=== PATIENT | female | born 1970 | race Caucasian/White ===

== ENCOUNTER 2020-04-28 07:58 | Outpatient (CLI) | payer BC, SELFPAY ==
--- NOTE | ~2020-04-28 | MM_ITS ---
EXAMINATION: MM screening romie BI w marley HISTORY: Screening mammogram TECHNIQUE: Craniocaudal and mediolateral oblique 3-D tomosynthesis images were obtained and synthetic 2-D images were generated. CAD analysis was submitted and interpreted. COMPARISON: No prior mammogram is available for comparison at this institution. BREAST PARENCHYMAL COMPOSITION: There are scattered areas of fibroglandular density. FINDINGS: There is no evidence of suspicious mass, calcification, or architectural distortion to sugg est malignancy in either breast. There has been no suspicious interval change. IMPRESSION: 1. No mammographic evidence of malignancy. 2. Recommend routine screening mammography in one year. BI-RADS Category 1: Negative Reviewed, dictated and finalized at location A. [facility] [employer]
== END 2020-04-28 07:59 | disposition home or self-care (01) ==
LOC: ANHIMG 08:04
PROVIDERS: Visit Provider Obstetrics & Gynecology
DX: Z12.31 Encounter for screening mammogram for malignant neoplasm of breast (principal)
CPT/HCPCS: 77063; 77067

== ENCOUNTER 2021-01-19 08:26 | Outpatient (RCR) | payer BC, SELFPAY | END 2021-04-05 11:58 | disposition home or self-care (01) | LOC: ANHDMC 08:26 | PROVIDERS: PCP Nurse Practitioner Adult Health; Visit Provider Nurse Practitioner Adult Health | DX: Z98.84 Bariatric surgery status (principal) | CPT/HCPCS: 99199 ==

== ENCOUNTER 2021-05-26 13:19 | Outpatient (CLI) | payer BC, SELFPAY ==
--- NOTE | 2021-05-26 | ECHO_ITS ---
Patient Info Name: Johanna Castellanos Age: 50 years : 1970 Gender: Female Ht: 65 in Wt: 202 lbs BSA: 2.09 m2 HR: 78 bpm BP: 114 / 67 mmHg Heart Rhythm: Sinus Rhythm Technical Quality: Good Exam Date: 05/26/2021 2:15 PM Exam Location: [facility] Patient Status: Outpatient Admit Date: 05/26/2021 Staff Ordering Physician: GUSTAVO JACKSON MD [employer] Salesperson: April Tanner RDCS Attending Provider: GUSTAVO JACKSON MD Exam Type: CA echo doppler color flow Study Info Indications - [facility] Complete two-dimensional, color flow and Doppler transthoracic echocardiogram is performed. Summary 1. Complete two-dimensional, color flow and Doppler transthoracic echocardiogram is performed. 2. Normal left ventricular size and thickness with good contractility of all segments. No segmental wall motion abnormalities. Ejection fraction 65%. Normal diastolic function. 3. No significant valve disease. 4. No pulmonary hypertension, estimated pulmonary arterial systolic pressure is 34 mmHg. 5. Normal sinus rhythm. Left Ventricle Left ventricular chamber dimension is normal. Left ventricular systolic function is normal, estimated at 60-65%. There is no increased left ventricular wall thickness. Left ventricular septal wall motion is normal. The left ventricular diastolic function is normal. Right Ventricle Right ventricular chamber dimension is normal. Right ventricular systolic function is normal. Left Atria Left atrial chamber dimension is normal. Right Atria Right atrial chamber dimension is normal. Aortic Valve The aortic valve is trileaflet. There is no aortic valve sclerosis. There is no aortic valve stenosis. There is no aortic valve regurgitation. Pulmonic Valve The pulmonic valve is normal. There is no pulmonic valve stenosis. There is no pulmonic regurgitation. Mitral Valve The mitral valve has normal leaflets. There is no mitral valve stenosis. There is no mitral valve regurgitation. Tricuspid Valve The tricuspid valve leaflets are normal. There is no significant tricuspid valve stenosis. There is trace tricuspid valve regurgitation. No pulmonary hypertension, estimated pulmonary arterial systolic pressure is 34 mmHg. Pericardium/Pleural The pericardium appears normal. There is no pericardial effusion. Inferior Vena Cava Normal inferior vena cava with >50% collapse upon inspiration consistent with Empty right atrial pressure, 10 mmHg. Aorta The aortic root size at the sinus of Valsalva is normal. The prox ascending aorta size is normal. Left Ventricular Outflow Tract Name Value Normal LVOT 2D LVOT Diameter 2.0 cm LVOT Doppler LVOT Peak Gradient 4 mmHg LVOT Mean Gradient 2 mmHg LVOT VTI 23 cm LVOT VTI/AV VTI Ratio 1.0 LVOT Stroke Volume 75 ml LVOT CO 13.9 l/min LVOT CI 6.6 l/min/m2 Pulmonic Valve
== END 2021-05-26 13:20 | disposition home or self-care (01) ==
LOC: ANHCARD 13:23
DX: R00.2 Palpitations (principal); R06.00 Dyspnea, unspecified; R60.9 Edema, unspecified
CPT/HCPCS: 93306

== ENCOUNTER → 2021-06-21 10:01 | Outpatient (CLI) | payer BC, SELFPAY ==
--- NOTE | ~2021-06-21 | XR_ITS ---
EXAMINATION: XR lumbar spine min 4V DATE: 06/21/2021 10:59 INDICATION: Unspecified osteoarthritis TECHNIQUE: Anteroposterior, lateral, and bilateral oblique views of the lumbar spine, and cone-down l ateral view of the lumbosacral junction were obtained. COMPARISON: None. FINDINGS: There is no fracture, dislocation, or subluxation. The vertebral body heights and alignment are normal. There is mild loss of intervertebral disc space height at L5-S1. The prevertebral soft t issues are normal. There is mild facet osteoarthritis of the lower lumbar spine. Surgical clips in th e right upper quadrant are likely from prior cholecystectomy. IMPRESSION: 1. Mild lumbar spondylosis without acute findings. Reviewed, dictated and finalized at location A.
--- NOTE | ~2021-06-21 | XR_ITS ---
EXAMINATION: XR sacroiliac joints min 3V DATE: 06/21/2021 10:59 INDICATION: Other specified abnormal immunologic findings TECHNIQUE: AP and left and right oblique views of the bilateral sacroiliac joints are obtained. COMPARISON: 01/04/2010 FINDINGS: Alignment is normal. No fracture. Bilateral sacroiliac joint spaces appear symmetric and re latively preserved. Tiny marginal osteophytes inferiorly. No erosions to suggest an inflammatory sacr oiliitis. Bilateral hip joint spaces are normal. L5 is partially sacralized on the left. IMPRESSION: 1. Minimal bilateral sacroiliac osteoarthritis. Reviewed, dictated and finalized at location A.
--- NOTE | ~2021-06-21 | XR_ITS ---
EXAMINATION: XR foot RT standing 2V DATE: 06/21/2021 10:59 INDICATION: Other specified abnormal immunological findings. Right foot pain. TECHNIQUE: 2 views of right foot with weightbearing were obtained. COMPARISON: None. FINDINGS: Bone alignment is normal. No fracture. There is mild osteoarthritis of calcaneocuboid joint and some of the interphalangeal joints. There is an enthesophyte at posterior aspect of calcaneal tu berosity. IMPRESSION: 1. Mild polyarticular osteoarthritis. Reviewed, dictated and finalized at location B.
--- NOTE | ~2021-06-21 | XR_ITS ---
EXAMINATION: XR knee RT min 4V DATE: 06/21/2021 10:59 INDICATION: Other specified abnormal immunological findings. Right knee pain. TECHNIQUE: 4 views of right knee including standing views were obtained. COMPARISON: None. FINDINGS: Bone alignment is normal. No fracture. There is mild osteoarthritis of medial and patellofe moral compartments characterized by tiny osteophytes. No joint space narrowing. No knee joint effusio n. IMPRESSION: 1. Mild right knee osteoarthritis. Reviewed, dictated and finalized at location B.
--- NOTE | ~2021-06-21 | XR_ITS ---
EXAMINATION: XR knee LT min 4V DATE: 06/21/2021 10:59 INDICATION: Other specified abnormal immunological findings. Left knee joint pain. TECHNIQUE: 4 views of left knee including standing views were obtained. COMPARISON: None. FINDINGS: Bone alignment is normal. No fracture. Joint spaces are well maintained. There is no knee j oint effusion. IMPRESSION: 1. Normal left knee. Reviewed, dictated and finalized at location B. IMPRESSION: 1. Normal left knee.
--- NOTE | ~2021-06-21 | XR_ITS ---
EXAMINATION: HAND-BETSY ARTHRITIS 3+VIEWS DATE: 06/21/2021 10:59 INDICATION: Unspecified osteoarthritis. Other specified abnormal immunological finding with positive and he. Joint pain and stiffness. TECHNIQUE: Posteroanterior, lateral, and oblique views of the left and of the right hands as well as a ballcatchers view of both hands were obtained. COMPARISON: None. FINDINGS: Alignment is normal. No fracture. Typical distribution of relatively symmetric mild polyarticular ost eoarthritis at the radial aspect of the carpus and multiple bilateral metacarpophalangeal and interph alangeal joints with distal interphalangeal joint predominance. No erosions in either hand to suggest an inflammatory arthritis. Soft tissues are unremarkable. IMPRESSION: 1. Mild polyarticular osteoarthritis at the bilateral hands. No erosions to suggest inflammatory arth ritis. Reviewed, dictated and finalized at location A. IMPRESSION: 1. Mild polyarticular osteoarthritis at the bilateral hands. No erosions to sug gest inflammatory arthritis.
--- NOTE | ~2021-06-21 | XR_ITS ---
EXAMINATION: XR foot LT standing 2V DATE: 06/21/2021 10:59 INDICATION: Other specified abnormal immunological finding. Joint pain, swelling and stiffness. TECHNIQUE: Dorsoplantar and lateral views of the left foot were obtained. COMPARISON: None. FINDINGS: Alignment is normal. No fracture. Minimal to mild osteoarthritis at the first metatarsophalangeal and several tarsal metatarsal and interphalangeal joints. No erosions to suggest inflammatory arthritis. Small amount of enthesopathic consultation at the distalmost Achilles tendon. Soft tissues are other harkins unremarkable. IMPRESSION: 1. Minimal to mild polyarticular osteoarthritis in the mid and forefoot. No erosions to suggest an in flammatory arthritis. 2. Small amount of enthesopathic ossification at the the distal Achilles tendon. Reviewed, dictated and finalized at location A. IMPRESSION: 1. Minimal to mild polyarticular osteoarthritis in the mid and forefoot. No ero sions to suggest an inflammatory arthritis. 2. Small amount of enthesopathic ossification at the the distal Achilles tendon .
== END ==
PROVIDERS: PCP Nurse Practitioner Adult Health; Visit Provider Internal Medicine
DX: M19.90 Unspecified osteoarthritis, unspecified site (principal); R06.02 Shortness of breath; R76.8 Other specified abnormal immunological findings in serum; M47.896 Other spondylosis, lumbar region; M19.072 Primary osteoarthritis, left ankle and foot; M19.041 Primary osteoarthritis, right hand; M19.042 Primary osteoarthritis, left hand; M19.071 Primary osteoarthritis, right ankle and foot; M17.11 Unilateral primary osteoarthritis, right knee
CPT/HCPCS: 72110; 72202; 73130; 73564; 73620

== ENCOUNTER → 2021-06-25 14:03 | Outpatient (CLI) | payer BC, SELFPAY ==
--- NOTE | ~2021-06-25 | US_ITS ---
EXAMINATION: US thyroid DATE: 06/25/2021 14:37 INDICATION: Hypothyroidism, unspecified. TECHNIQUE: Multiple ultrasound images of the thyroid were obtained. COMPARISON: None. FINDINGS: The right thyroid lobe measures 3.8 x 1.2 x 1.0 cm. The left thyroid lobe measures 3.7 x 1.1 x 1.1 c m. The thyroid demonstrates heterogeneous echogenicity. Vascularity is normal. No discrete nodule. IMPRESSION: 1. Heterogeneous thyroid, likely chronic lymphocytic (Anne) thyroiditis. Reviewed, dictated and finalized at location A.
== END ==
PROVIDERS: PCP Nurse Practitioner Adult Health; Visit Provider Internal Medicine Endocrinology, Diabetes & Metabolism
DX: E03.9 Hypothyroidism, unspecified (principal)
CPT/HCPCS: 76536

== ENCOUNTER 2021-06-28 16:04 | Outpatient (CLI) | payer BC, SELFPAY ==
--- NOTE | ~2021-06-28 | CT_ITS ---
EXAMINATION: CT soft tissue neck w con DATE: 06/28/2021 16:35 INDICATION: Neck pain, cervical lymphadenopathy TECHNIQUE: Computed tomography (CT) of the neck was performed with 75 cc of Omnipaque 300 intravenous contrast. The dose-length product (DLP) was 621.06 mGy-cm. Automated exposure control and iterative reconstruction technique were employed. COMPARISON: None FINDINGS: The thyroid gland is unremarkable. The submandibular and parotid glands are symmetric. Ther e is no lymphadenopathy. There are no masses identified. The vasculature is patent. The airway is unr emarkable. There are no osseous abnormalities. The orbits are unremarkable. The superior mediastinum is unremarkable. Visualized sinuses and mastoid air cells are well aerated. IMPRESSION: 1. No CT correlate for the patient's symptoms. Reviewed, dictated and finalized at location A.
== END 2021-06-28 16:05 | disposition home or self-care (01) ==
PROVIDERS: PCP Nurse Practitioner Adult Health; Visit Provider Nurse Practitioner Adult Health
DX: R59.0 Localized enlarged lymph nodes (principal)
CPT/HCPCS: 70491; Q9967

== ENCOUNTER 2021-07-29 13:06 | Emergency (ER) | payer BC, SELFPAY ==
[2021-07-29 13:18] VITALS: BP 113/82; PULSE 72; RESP 18; TEMP 36.9; O2SAT 98
--- NOTE | 2021-07-29 13:37 | ED.URI ---
HPI - URI/Sore Throat General Chief Complaint: Upper Respiratory Infection Stated Complaint: Cough,Bilateral Ear Time Seen by Provider: 07/29/21 13:37 Source: patient Mode of arrival: ambulatory Limitations: no limitations History of Present Illness HPI Narrative: 51-year-old female presents with complaint of cough, sore throat and headache starting 2 days ago. Reports today she has bilateral ear pain. Reports throat is really sore . Denies chest pain shortness of breath. No nausea vomiting diarrhea. No COVID contacts. Reports her has had similar symptoms for the past 4 to 5 days. Has taken a home COVID test and his test was negative. All systems reviewed and negative except as noted above. Related Data Home Medications Medication Instructions Recorded Confirmed levothyroxine 125 mcg tablet 125 mcg PO DAILY 03/09/21 07/29/21 (Synthroid) cholecalciferol (vitamin D3) 250 250 mcg PO WEEKLY 05/18/21 07/29/21 mcg (10,000 unit) capsule Allergies Allergy/AdvReac Type Severity Reaction Status Date / Time doxycycline Allergy Unknown Unknown Verified 07/29/21 13:22 morphine Allergy Unknown body Verified 07/29/21 13:22 doesnt absorb Review of Systems Review of Systems: CONSTITUTIONAL: Denies fever, chills, or sweats. EYES: Denies visual changes, redness, or discharge. ENT: Reports rhinorrhea, congestion, sore throat, and otalgia. CARDIOVASCULAR: Denies chest pain, palpitations, or edema. RESPIRATORY: Reports cough. Denies dyspnea. GASTROINTESTINAL: Denies abdominal pain, nausea, vomiting, or diarrhea. GENITOURINARY: Denies dysuria or hematuria. SKIN: Denies rash or itching. MUSCULOSKELETAL: Denies back pain, joint pain, or myalgia. NEUROLOGIC: Denies headache, numbness, or weakness. PSYCHIATRIC: Denies anxiety or depression. All other systems reviewed are negative, except as documented in HPI. [facility] Past Medical History Medical History (Updated 07/30/21 @ 00:00 by Caleb Matthew) VICKIE positive Arthritis Head ache Inflammatory arthritis Palpitations SOB (shortness of breath) Thyroid disorder Surgical History Surgical History H/O gastric sleeve H/O hemorrhoidectomy H/O: hysterectomy History of appendectomy History of cholecystectomy Status post removal of thyroid nodule Family History Family History Father Family history of diabetes mellitus in first degree relative Cancer Diabetes mellitus Hypertension Heart disease Sibling Family history of sleep apnea Grandparent Family history of heart disease in male family member before age 55 Mother Depression Grandparent Alcoholism Cancer Grandparent Cancer Heart disease Thyroid disorder Social History Social History Smoking status: Never smoker Alcohol intake: never Substance use: never Comments At time of signature, agree with nursing past medical, surgical, social and family history. There is no relevant family history pertinent to the presenting complaint. Exam Narrative: GENERAL: This is a well-nourished, well-developed patient, in no apparent distress. HEAD: normocephalic, atraumatic. EYES: PERRL. Sclera clear/white. Vision is grossly intact. EARS: External ears normal, auditory canals clear and without drainage, TMs normal without perforation. Hearing grossly intact. NOSE: External nose normal with clear nasal drainage. No sinus tenderness. THROAT: Mucous membranes moist, mild erythema to posterior pharynx. No swelling or exudate. Tonsils normal. NECK: Neck supple, non-tender without lymphadenopathy, masses or thyromegaly. CARDIOVASCULAR: Regular rate and rhythm without murmurs, gallops, or rubs. RESPIRATORY: Clear to auscultation. Breath sounds equal bilaterally. No wheezes, rales, or rhonchi. SKIN: warm, Dry, intact with no s
== END 2021-07-29 14:11 | disposition home or self-care (01) ==
PROVIDERS: Emergency Provider Nurse Practitioner Family; PCP Nurse Practitioner Adult Health
DX: J06.9 Acute upper respiratory infection, unspecified (principal); Z20.822 Contact with and (suspected) exposure to COVID-19; M19.90 Unspecified osteoarthritis, unspecified site; M06.9 Rheumatoid arthritis, unspecified; Z98.84 Bariatric surgery status; E07.9 Disorder of thyroid, unspecified
CPT/HCPCS: 87081; 87426; 87880; 99213; C9803; G0463

== ENCOUNTER → 2021-08-16 15:03 | Outpatient (CLI) | payer BC, SELFPAY ==
--- NOTE | ~2021-08-16 | MR_ITS ---
EXAMINATION: MR lumbar spine wo/w con DATE: 08/16/2021 15:56 INDICATION: M06.9 - Rheumatoid arthritis, unspecified . Chronic low back pain, swelling, bilateral le g pain. Worsening over the last year. No trauma. TECHNIQUE: Magnetic resonance imaging (MRI) of the lumbar spine was performed without intravenous con trast. Sequences included sagittal T2-weighted FSE, sagittal T2-weighted FS FSE, sagittal T1-weighted FSE, and axial T2-weighted FSE. COMPARISON: X-ray lumbar spine 06/21/2021. FINDINGS: The last fully formed and hydrated disc is designated L5-S1. The marrow signal is benign an d homogenous. Partial sacralization on the left at L5, with pseudoarthrosis formation. Mild enhanceme nt within the bilateral sacroiliac joints. Otherwise no abnormal enhancement in the lumbar spine. Con us terminates at L1-2. The discs are well hydrated. Disc space narrowing at L5-S1. The following disc levels are specifically discussed: T11-T12: The disc does not extend beyond the endplate margin. There is no facet joint osteoarthritis. There is no neural foraminal stenosis. There is no central canal stenosis. T12-L1: The disc does not extend beyond the endplate margin. There is mild facet joint osteoarthritis . There is no neural foraminal stenosis. There is no central canal stenosis. L1-L2: The disc does not extend beyond the endplate margin. There is mild facet joint osteoarthritis. There is no neural foraminal stenosis. There is no central canal stenosis. L2-L3: The disc does not extend beyond the endplate margin. There is mild facet joint osteoarthritis. There is no neural foraminal stenosis. There is no central canal stenosis. L3-L4: Mild diffuse bulge. There is moderate facet joint osteoarthritis. There is no neural foraminal stenosis. There is no central canal stenosis. L4-L5: Mild diffuse bulge. There is moderate facet joint osteoarthritis. There is no neural foraminal stenosis. There is no central canal stenosis. L5-S1: The disc does not extend beyond the endplate margin. There is moderate facet joint osteoarthri tis. There is no neural foraminal stenosis. There is no central canal stenosis. IMPRESSION: 1. Mild degenerative disc disease at L3-4 through L5-S1. 2. Moderate facet arthropathy at L3-4 and L4-5. 3. Partial sacralization of L5 on the left, with pseudoarthrosis. 4. Mild bilateral sacroiliac joint enhancement may reflect mild sacroiliitis. Reviewed, dictated and finalized at location K.
[2021-08-16 15:29] LABS: Estimated Glomerular Filt Rate > 60
== END ==
PROVIDERS: PCP Nurse Practitioner Adult Health; Visit Provider Internal Medicine
DX: M06.9 Rheumatoid arthritis, unspecified (principal); M43.06 Spondylolysis, lumbar region; M51.37 Other intervertebral disc degeneration, lumbosacral region; M51.36 Other intervertebral disc degeneration, lumbar region
CPT/HCPCS: 72158; A9577

== ENCOUNTER → 2022-05-03 09:25 | Outpatient (CLI) | payer BC, SELFPAY ==
--- NOTE | ~2022-05-03 | XR_ITS ---
Cervical Spine: AP, lateral, open-mouth views Clinical History: Pain Findings: There is minimal reversal normal cervical lordosis. The vertebral bodies and posterior mango ments appear intact. The intervertebral disc spaces are well maintained. Pre-vertebral soft tissues are unremarkable. Impression: Minimal reversal of the normal cervical lordosis, otherwise unremarkable exam. Reviewed, dictated and finalized at [facility]. Impression: Minimal reversal of the normal cervical lordosis, otherwise unremarkable exam.
--- NOTE | ~2022-05-03 | US_ITS ---
EXAMINATION: US soft tissue head and neck DATE: 05/03/2022 09:46 INDICATION: Neck focal swelling. TECHNIQUE: Multiple grayscale and Doppler ultrasound images of the neck were obtained. COMPARISON: CT neck 06/28/2021 FINDINGS: There is no abnormal mass or lymphadenopathy in the patient's area of concern. IMPRESSION: 1. No abnormal mass or lymphadenopathy in the patient's area of concern. Reviewed, dictated and finalized at location A.
== END ==
PROVIDERS: PCP Physician Assistant; Visit Provider Physician Assistant
DX: R22.1 Localized swelling, mass and lump, neck (principal); M54.12 Radiculopathy, cervical region
CPT/HCPCS: 72040; 76536

== ENCOUNTER 2022-06-23 07:20 | Outpatient (CLI) | payer BC, SELFPAY ==
--- NOTE | ~2022-06-23 | MM_ITS ---
EXAMINATION: MM screening romie BI w marley HISTORY: Screening mammogram TECHNIQUE: Craniocaudal and mediolateral oblique 3-D tomosynthesis images were obtained and synthetic 2-D images were generated. CAD analysis was submitted and interpreted. COMPARISON: 04/28/2020 BREAST PARENCHYMAL COMPOSITION: There are scattered areas of fibroglandular density. FINDINGS: No suspicious mass, calcification, or architectural distortion are identified in either vladimir ast to suggest malignancy. There has been no suspicious interval change. IMPRESSION: 1. No mammographic evidence of malignancy. 2. Recommend routine screening mammography in one year. BI-RADS Category 1: Negative Reviewed, dictated and finalized at location A.
== END 2022-06-23 07:21 | disposition home or self-care (01) ==
LOC: ANHIMG 07:22
PROVIDERS: PCP Physician Assistant; Visit Provider Physician Assistant
DX: Z12.31 Encounter for screening mammogram for malignant neoplasm of breast (principal)
CPT/HCPCS: 77063; 77067

== ENCOUNTER 2022-07-28 13:50 | Emergency (ER) | payer BC, SELFPAY ==
--- NOTE | 2022-07-28 13:52 | ED.URI ---
HPI - URI/Sore Throat General Chief Complaint: Upper Respiratory Infection Stated Complaint: upper resp symptoms Time Seen by Provider: 07/28/22 14:00 Source: patient, RN notes reviewed and old records reviewed Mode of arrival: ambulatory Limitations: no limitations History of Present Illness HPI Narrative: 52-year-old female presents to the [facility] with complaints of 12 days of cough, congestion. States she thought she just had cold symptoms, some of the symptoms improve, so got worse on Monday, 3 days ago Patient reports exposures to COVID this Past few days, was notified this morning of her positive exposure, did to at home test 1 last week, 1 on Monday which she reports is negative. patient denies any fevers. Denies any chest pain or abdominal pain. patient already on prednisone, does not want to change her dose at this time. Patient is due for a infusion for her RA in 1 week, States she really does not want antibiotics at this time. Onset (ago): day(s) (12) Treatments prior to arrival: none Related Data Home Medications Medication Instructions Recorded Confirmed escitalopram oxalate 10 mg tablet mg 07/28/22 folic acid 1 mg tablet 07/28/22 methotrexate sodium 2.5 mg tablet mg 07/28/22 Allergies Allergy/AdvReac Type Severity Reaction Status Date / Time doxycycline Allergy Unknown Unknown Verified 07/28/22 13:56 morphine Allergy Unknown body Verified 07/28/22 13:56 doesnt absorb Review of Systems Review of Systems: All systems reviewed & are unremarkable except as noted in HPI and below Constitutional: Constitutional: Reports no additional constitutional complaints Eyes: Eyes: Reports no additional eye complaints ENT: Reports as per HPI Cardiovascular: Cardiovascular: Reports no additional cardiovascular complaints, Denies chest pain and Denies dyspnea Respiratory: Respiratory: Reports as per HPI, Denies chest congestion, Reports cough and Denies dyspnea Gastrointestinal: Gastrointestinal: Reports no additional gastrointestinal complaints, Denies abdominal pain, Denies nausea and Denies vomiting Musculoskeletal: Musculoskeletal: Reports no additional musculoskeletal complaints Integumentary/Breasts: Skin/Breast: Reports system reviewed and no additional complaints, except as docu Neurologic: Reports system reviewed and no additional complaints, except as documented Psychiatric: Psychiatric: Reports no additional psychiatric complaints Allergic/Immunologic: Allergic/Immunologic: Reports no additional allergic/immunologic complaints PMFSH Past Medical History Medical History Adult hypothyroidism VICKIE positive Ankylosing spondylitis Arthritis Head ache Inflammatory arthritis Palpitations SOB (shortness of breath) Thyroid disorder Surgical History Surgical History H/O gastric sleeve H/O hemorrhoidectomy H/O: hysterectomy History of appendectomy History of cholecystectomy Status post removal of thyroid nodule Family History Family History Father Family history of diabetes mellitus in first degree relative Cancer Diabetes mellitus Hypertension Heart disease Sibling Family history of sleep apnea Grandparent Family history of heart disease in male family member before age 55 Mother Depression Grandparent Alcoholism Cancer Grandparent Cancer Heart disease Thyroid disorder Social History Social History Smoking status: Never smoker Alcohol intake: never Substance use: never Comments At the time of my signature, I reviewed and agree with the nursing past medical, surgical, social, and family history. There is no relevant family history pertinent to the patient complaint. Exam Const: General: cooperative, healthy appearing
[2022-07-28 13:54] VITALS: BP 120/78; PULSE 85; RESP 16; TEMP 36.2; O2SAT 96
== END 2022-07-28 14:23 | disposition home or self-care (01) ==
PROVIDERS: Emergency Provider Nurse Practitioner; PCP Physician Assistant
DX: R09.82 Postnasal drip (principal); J06.9 Acute upper respiratory infection, unspecified; E03.9 Hypothyroidism, unspecified; M45.9 Ankylosing spondylitis of unspecified sites in spine; M19.90 Unspecified osteoarthritis, unspecified site
CPT/HCPCS: 99213; G0463

== ENCOUNTER → 2022-09-16 15:16 | Outpatient (CLI) | payer BC, SELFPAY ==
--- NOTE | ~2022-09-16 | XR_ITS ---
XR lumbar spine 2-3V DATE: 09/16/2022 15:52 INDICATION: Low back pain for many years. No injury. TECHNIQUE: AP, lateral, coned lateral lumbosacral views COMPARISON: None FINDINGS: There is a transitional lumbosacral vertebra with sacralization pseudoarthrosis on the left , lumbarization on the right. Transitional lumbosacral vertebra may be a source of chronic low back p ain. No fracture or bone destruction. The lumbar pedicles are intact. Lumbar and upper sacral interspaces appear relatively well preserved. The sacroiliac joints are intact. 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 IMPRESSION: Transitional lumbosacral vertebra with sacralization and pseudoarth rosis on the left
== END ==
PROVIDERS: PCP Internal Medicine; Visit Provider Internal Medicine
DX: M77.9 Enthesopathy, unspecified (principal); M45.9 Ankylosing spondylitis of unspecified sites in spine; R76.8 Other specified abnormal immunological findings in serum
CPT/HCPCS: 72100

== ENCOUNTER → 2022-10-10 13:41 | Outpatient (CLI) | payer BC, SELFPAY ==
--- NOTE | ~2022-10-10 | XR_ITS ---
EXAMINATION: XR chest 2V DATE: 10/10/2022 14:10 INDICATION: Shortness of breath. TECHNIQUE: Frontal and lateral views of the chest were obtained. COMPARISON: Chest film view 12/11/2019 FINDINGS: There is no pneumonia, pleural effusion, or pneumothorax. The heart size is normal. IMPRESSION: 1. No acute cardiopulmonary disease. Reviewed, dictated and finalized at location A.
== END ==
PROVIDERS: PCP Physician Assistant; Visit Provider Internal Medicine
DX: R06.02 Shortness of breath (principal); R53.83 Other fatigue; R63.0 Anorexia; R29.898 Other symptoms and signs involving the musculoskeletal system
CPT/HCPCS: 71046

== ENCOUNTER → 2023-01-30 10:45 | Outpatient (CLI) | payer BC, SELFPAY ==
--- NOTE | ~2023-01-30 | MR_ITS ---
MRI of the right knee Clinical history: Pain Technique: Coronal proton density and proton density-weighted images, sagittal proton-density and T2 fat-sat images, and axial proton-density fat-saturated images were acquired. Findings: Anterior and posterior cruciate ligaments are intact. Medial collateral ligament and the la teral collateral ligament complex are intact. Popliteus tendon is intact. Medial and lateral menisci are intact, without evidence of tear. There is marrow edema at the medial tibial plateau region. There is probable mild diffuse articular c artilage thinning. Extensor mechanism is intact. No joint effusion or Chairez's cyst. Impression: Marrow edema at the medial tibial plateau region, suggestive of bone contusion or reactive marrow virgen ma due to overlying chondromalacia. No ligamentous injury or meniscal tear. Reviewed, dictated and finalized at [facility]. 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 No ligamentous injury or meniscal tear.
== END ==
PROVIDERS: PCP Orthopaedic Surgery; Visit Provider Physician Assistant Surgical
DX: M25.561 Pain in right knee (principal)
CPT/HCPCS: 73721

== ENCOUNTER 2024-05-01 14:00 | Outpatient (CLI) | payer BC, SELFPAY ==
--- NOTE | ~2024-05-01 | MM_ITS ---
EXAMINATION: MM screening romie BI w marley HISTORY: Screening mammogram TECHNIQUE: Craniocaudal and mediolateral oblique 3-D tomosynthesis images were obtained and synthetic 2-D images were generated. CAD analysis was submitted and interpreted. COMPARISON: 06/23/2022, 04/28/2020 BREAST PARENCHYMAL COMPOSITION:Not Dense. There are scattered areas of fibroglandular density. FINDINGS: No suspicious mass, calcification, or architectural distortion are identified in either vladimir ast to suggest malignancy. There has been no suspicious interval change. IMPRESSION: No mammographic evidence of malignancy. Recommend routine screening mammography in one year. BI-RADS Category 1: Negative Reviewed, dictated and finalized at location .
--- OUTSIDE RECORDS SUMMARY | 2024-05-01 15:50 | XMS_ITS | Patient Health Summary ---
Author Organization [facility] Address [address] [address] Care Team Providers Care Truck Loader Overhead Crane Name Role Phone Luz Marinamert Sylvia BETY-DRAPERY MAKER Primary Care Provider + Note from [facility],non-owned Affiliates and Associated Physician Practices is amultiple site organization consisting of ambulatory clinics and hospital sitesin [place], [place], [place] and [place]. This disclosure is being madepursuant to the Care Everywhere program and may not contain all information available regarding this patient. Last updated 17.[facility] Allergies * Morphine(Anaphylaxis) -High Criticality Medications * Be aware that medications may not be up to date on this document. Alwaysverify current medications with the patient. * est estrogens-methyltest (ESTRATEST) 1.25-2.5 MG tablet Take 1 Tab by mouth * levothyroxine (SYNTHROID) 137 MCG tablet Take 137 mcg by mouth * docusate sodium (COLACE) 100 MG capsule(Started 08/30/2016) 1 tab daily as needed Social History Tobacco Use Types Packs/Day Years Used Date Smoking Tobacco: Never Smokeless Tobacco: Never Alcohol Use Standard Drinks/Week Comments No 0 (1 standard drink = 0.6 oz pur e alcohol) Sex and Gender Information Value Date Recorded Sex Assigned at Not on file Gender Identity Not on file Sexual Orientation Not on file Last Filed Vital Signs Vital Sign Reading Time Taken Comments Blood Pressure 120/68 02/16/2017 12:53 PM GROUNDS SUPERVISOR Pulse 121 02/16/2017 12:53 PM GROUNDS SUPERVISOR Temperature 37.1 C (98.7 F) 02/16/2017 12:53 PM GROUNDS SUPERVISOR Respiratory Rate 16 08/30/2016 3:05 PM CDT Oxygen Saturation 98% 02/16/2017 12:53 PM GROUNDS SUPERVISOR Inhaled Oxygen Concentration - - Weight 73.8 kg (162 lb 9.6 oz) 02/16/2017 12:53 PM GROUNDS SUPERVISOR Height 165.1 cm (5' 5 ) 02/16/2017 12:53 PM GROUNDS SUPERVISOR Body Mass Index 27.06 02/16/2017 12:53 PM GROUNDS SUPERVISOR Procedures * CULTURE STREP GROUP A(Performed 02/16/2017) Performed for Fever, unspecified fever cause * STREP A SCREEN - POINT OF CARE (AMB) SMGS(Performed 02/16/2017) Performed for Fever, unspecified fever cause * INFLUENZA A+B - POINT OF CARE (AMB) SMGS(Performed 02/16/2017) Performed for Fever, unspecified fever cause * URINE MICROSCOPIC ONLY REFLEX TO CULTURE(Performed 08/30/2016) * URINALYSIS REFLEX MICROSCOPIC REFLEX CULTURE(Performed 08/30/2016) * CULTURE URINE(Performed 08/30/2016) * CT ABDOMEN PELVIS W CONTRAST(Performed 08/30/2016) Performed for Abdominal pain, generalized * DIFFERENTIAL MANUAL(Performed 08/30/2016) * LIPASE BLOOD(Performed 08/30/2016) * AMYLASE BLOOD(Performed 08/30/2016) * COMPREHENSIVE METABOLIC PANEL(Performed 08/30/2016) * CBC W AUTO DIFFERENTIAL(Performed 08/30/2016) Results * CULTURE STREP GROUP A (02/16/2017 3:59 PM GROUNDS SUPERVISOR) Pathologist [facility] Culture Negative for beta-hemolytic Streptococcus Group A DOMINIC 02/18/2017 6:54 AM GROUNDS SUPERVISOR [facility] Microbiology ENTIRE THROAT (SURFACE REGION OF NECK) / Unknown Collection / Unknown 02/16/2017 3:59 PM GROUNDS SUPERVISOR 02/16/2017 3:59 PM GROUNDS SUPERVISOR Rosemary Magaña SALARY MANAGER-DRAPERY MAKER LAB - MICRO BIOLOGY ORDERABLES Performing Organization Address City/State/[facility] Co de Phone Number [facility] [address] [place], [place] [id number] [place] [address] * STREP A SCREEN - POINT OF CARE (AMB) SMGS (02/16/2017) Strep A Rapid POCT Negative Negative Strep A Rapid Screen Internal Control POCT Present Throat ENTIRE THROAT (SURFACE REGION OF NECK) / Unknown 02/16/2017 Rosemary Magaña [facility] - POINT OF CARE ORDERABLES * INFLUENZA A+B - POINT OF CARE (AMB) SMGS (02/16/2017) Influenza A Antigen Rapid Negative Negative Influenza B Antigen Rapid Negative Negative Influenza Internal Control Present SENIOR MEDIA BUYER Swab NASOPHARYNGEAL SWAB / Unknown 02/16/2017 Rosemary Magaña [facility] - POINT OF CARE ORDERABLES * (ABNORMAL) URINALYSIS MICROSCOPIC ONLY W/REFLEX CULTURE (08/30/2016 2:37 PM CDT) RBC UA None None, 0-2 # /hpf 08/30/2016 3:03 PM CDT [facility] WBC UA 0-2 None, 0-2, 2-5 # /hpf 08/30/2016 3:03 PM CDT [facility] Bacteria UA 1+(A) None Seen, Trace 08/30/2016 3:03 PM CDT [facility] Epithelial Cell UA 0-2 0-2, 2-5, 5-10 # /hpf 08/30/2016 3:03 PM CDT [facility] Reflex Status Culture to follow 08/30/2016 3:03 PM CDT [facility] Urine URINE SPECIMEN OBTAINED BY CLEAN CATCH PROCEDURE / Unknown 08/30/2016 2:37 PM CDT 08/30/2016 2:39 PM CDT Narrative [facility] - 08/30/2016 3:03 PM CDT Bacteria, epithelial cells, mucus, and crystals are reported as quantity/HPF. Timothy Andersen [facility] - URINALYS IS ORDERABLES [facility] [address] * (ABNORMAL) URINALYSIS ROUTINE W/REFLEX TO CULTURE (08/30/2016 2:37 PM CDT) Color UA Straw 08/30/2016 2:43 PM CDT [facility] Clarity UA Clear 08/30/2016 2:43 PM CDT [facility] Glucose UA Negative Negative 08/30/2016 2:43 PM CDT [facility] Bilirubin UA Negative Negative 08/30/2016 2:43 PM CDT [facility] Ketone UA 1+(A) Negative 08/30/2016 2:43 PM CDT [facility] Specific [place] UA 1.010 1.005 - 1.030 08/30/2016 2:43 PM CDT [facility] pH UA 6.5 5.0 - 8.0 pH 08/30/2016 2:43 PM CDT [facility] Protein UA Negative Negative 08/30/2016 2:43 PM CDT [facility] Urobilinogen UA 1.0 0.2 - 1.0 EU/dL 08/30/2016 2:43 PM CDT [facility] Nitrite UA Negative Negative 08/30/2016 2:43 PM CDT [facility] Blood UA Negative Negative 08/30/2016 2:43 PM CDT [facility] Leukocyte UA 1+(A) Negative 08/30/2016 2:43 PM CDT [facility] Urine Microscopy Urine microscopy to follow 08/30/2016 2:43 PM CDT [facility] Urine URINE SPECIMEN OBTAINED BY CLEAN CATCH PROCEDURE / Unknown 08/30/2016 2:37 PM CDT 08/30/2016 2:39 PM CDT Timothy Andersen [facility] - URINALYS IS ORDERABLES Performing Organization Address [facility]/ZIP Co de Phone Number [facility] [address] * CULTURE URINE (08/30/2016 2:37 PM CDT) Culture Urine Light growth normal skin/urogen ital alin DOMINIC 09/01/2016 9:46 AM CDT [facility] Urine URINE SPECIMEN OBTAINED BY CLEAN CATCH PROCEDURE / Unknown 08/30/2016 2:37 PM CDT 08/30/2016 2:39 PM CDT Timothy Andersen [facility] - MICROBIO LOGY ORDERABLES Performing Organization Address [facility]/ZIP Co de Phone Number [facility] [address] * CT ABDOMEN AND PELVIS W IV CONTRAST [id number] (08/30/2016 2:10 PM CDT) Anatomical Region Laterality Modality Abdomen, Pelvis Computed Tomogra phy 08/30/2016 2:25 PM CDT Narrative 08/30/2016 2:36 PM CDT PROCEDURE: CT ABDOMEN AND PELVIS WITH IV CONTRAST 08/30/2016 2:25 PM HISTORY: Generalized abdominal pain. FINDINGS AND IMPRESSION: COMPARISON: None. CONTRAST DOSE: 95 cc Omnipaque 300 IV. Radiation dose reduction technique was utilized. 1 cm sized cysts in right hepatic lobe. Spleen is unremarkable. Adrenal glands and pancreas are normal. Gallbladder is surgically absent. Both kidneys are normally functioning. No focal intra-abdominal or pelvic mass. No evidence of small bowel obstruction. Constipation. Bladder is unremarkable. No lymphadenopathy. No free fluid. No acute process. Preliminary report printed to the ER 08/30/2016 @ 1431 hours. Edited by Raven Tolbert on 08/30/2016 2:32 PM Procedure Note Carolyn Swartz MD - 08/30/2016 PROCEDURE: CT ABDOMEN AND PELVIS WITH IV CONTRAST 08/30/2016 2:25 PM HISTORY: Generalized abdominal pain. FINDINGS AND IMPRESSION: COMPARISON: None. CONTRAST DOSE: 95 cc Omnipaque 300 IV. Radiation dose reduction technique was utilized. 1 cm sized cysts in right hepatic lobe. Spleen is unremarkable. Adrenal glands and pancreas are normal. Gallbladder is surgically absent. Both kidneys are normally functioning. No focal intra-abdominal or pelvic mass. No evidence of small bowel obstruction. Constipation. Bladder is unremarkable. No lymphadenopathy. No free fluid. No acute process. Preliminary report printed to the ER 08/30/2016 @ 1431 hours. Edited by Raven Tolbert on 08/30/2016 2:32 PM Timothy Andersen SALARY MANAGER-DRAPERY MAKER CT ORDERABLES * (ABNORMAL) DIFFERENTIAL MANUAL (08/30/2016 1:03 PM CDT) WBC Auto 4.6 4.0 - 10.0 x10E9/L 08/30/2016 1:50 PM CDT [facility] Neutrophils % Manual 73 40 - 75 % 08/30/2016 1:50 PM CDT [facility] Lymphocytes % Manual 14(L) 19 - 53 % 08/30/2016 1:50 PM CDT [facility] Monocytes % Manual 12 5 - 13 % 08/30/2016 1:50 PM CDT [facility] Eosinophils % Manual 1 1 - 7 % 08/30/2016 1:50 PM CDT [facility] Neutrophils Absolute Manual 3.4 1.6 - 6.1 x10E3/uL 08/30/2016 1:50 PM CDT [facility] Lymphocytes Absolute Manual 0.6(L) 1.2 - 3.7 x10E3/uL 08/30/2016 1:50 PM CDT [facility] Monocytes Absolute Manual 0.6 0.2 - 0.9 x10E3/uL 08/30/2016 1:50 PM CDT [facility] Eosinophils Absolute Manual 0.0 0.0 - 0.5 x10E3/uL 08/30/2016 1:50 PM CDT [facility] Cells Counted 100 # cells 08/30/2016 1:50 PM CDT [facility] Platelet Estimation Adequate platelets Normal, Adequate platelets 08/30/2016 1:50 PM CDT [facility] RBC Morphology Normal 08/30/2016 1:50 PM CDT [facility] WBC Morph Normal 08/30/2016 1:50 PM CDT [facility] Blood BLOOD SPECIMEN / Unknown Lab Venipuncture / Unknown 08/30/2016 1:03 PM CDT 08/30/2016 1:06 PM CDT Timothy Andersen SALARY MANAGER-DRAPERY MAKER LAB - HEMATOLO GY ORDERABLES Performing Organization Address [facility]/State/[facility] Co de Phone Number [facility] [address] * CBC W AUTO DIFFERENTIAL (08/30/2016 1:03 PM CDT) [facility] Signature WBC 4.6 4.0 - 10.0 x10E9/L 08/30/2016 1:10 PM CDT [facility] RBC 4.49 3.93 - 5.22 x10E12/L 08/30/2016 1:10 PM CDT [facility] Hemoglobin 14.6 11.2 - 15.7 gm/dL 08/30/2016 1:10 PM CDT [facility] Hematocrit 42.0 34.1 - 44.9 % 08/30/2016 1:10 PM CDT [facility] MCV 93.5 78.0 - 100.0 fl 08/30/2016 1:10 PM CDT [facility] MCH 32.5 25.6 - 34.0 pg 08/30/2016 1:10 PM CDT [facility] MCHC 34.8 32.3 - 36.5 gm/dL 08/30/2016 1:10 PM CDT [facility] RDW 12.3 11.6 - 14.4 % 08/30/2016 1:10 PM CDT [facility] MPV 9.4 9.4 - 12.4 fl 08/30/2016 1:10 PM CDT [facility] Platelet Count 197 163 - 369 x10E9/L 08/30/2016 1:10 PM CDT [facility] Immature Granulocytes 0.0 0 - 0.5 % 08/30/2016 1:10 PM CDT [facility] Immature Granulocytes Absolute 0.00 0 - 0.03 x10E9/L 08/30/2016 1:10 PM CDT [facility] nRBC Auto 0 <=0 /100 WBC 08/30/2016 1:10 PM CDT [facility] Blood BLOOD SPECIMEN / Unknown Lab Venipuncture / Unknown 08/30/2016 1:03 PM CDT 08/30/2016 1:06 PM CDT Timothy Andersen SALARY MANAGER-DRAPERY MAKER LAB - HEMATOLO GY ORDERABLES Performing Organization Address [facility]/State/[facility] Co de Phone Number [facility] [address] * (ABNORMAL) COMPREHENSIVE METABOLIC PANEL (08/30/2016 1:03 PM CDT) [facility] Signature Glucose 91 70 - 125 mg/dL 08/30/2016 1:34 PM CDT [facility] Sodium 141 136 - 145 mmol/L 08/30/2016 1:34 PM CDT [facility] Potassium 3.8 3.4 - 4.5 mmol/L 08/30/2016 1:34 PM CDT [facility] Chloride 103 98 - 107 mmol/L 08/30/2016 1:34 PM CDT [facility] CO2 30(H) 22 - 29 mmol/L 08/30/2016 1:34 PM CDT [facility] Calcium 9.9 8.4 - 10.2 mg/dL 08/30/2016 1:34 PM CDT [facility] Anion Gap 12 10 - 20 mmol/L 08/30/2016 1:34 PM T [facility] BUN 21.7(H) 9.8 - 20.1 mg/dL 08/30/2016 1:34 PM T [facility] Creatinine 0.96 0.57 - 1.11 mg/dL 08/30/2016 1:34 PM T [facility] eGFR by MDRD >60 >60 mL/min/1.7 3m2 08/30/2016 1:34 PM T [facility] eGFR by MDRD >60 >60 mL/min/1.7 3m2 08/30/2016 1:34 PM T [facility] Alkaline Phosphatase 67 40 - 150 U/L 08/30/2016 1:34 PM T [facility] ALT 20 5 - 55 U/L 08/30/2016 1:34 PM T [facility] AST 24 5 - 34 U/L 08/30/2016 1:34 PM T [facility] Protein Total 7.8 6.4 - 8.3 gm/dL 08/30/2016 1:34 PM T [facility] Albumin 4.2 3.5 - 5.0 gm/dL 08/30/2016 1:34 PM T [facility] Globulin Total 3.6 2.6 - 4.0 gm/dL 08/30/2016 1:34 PM T [facility] Albumin/Globulin Ratio 1.2 0.9 - 1.6 08/30/2016 1:34 PM T [facility] Bilirubin Total 0.6 0.2 - 1.2 mg/dL 08/30/2016 1:34 PM T [facility] Blood BLOOD SPECIMEN / Unknown Lab Venipuncture / Unknown 08/30/2016 1:03 PM CDT 08/30/2016 1:06 PM CDT Timothy Andersen SALARY MANAGER-DRAPERY MAKER LAB - CHEMISTR Y ORDERABLES Performing Organization Address City/State/[facility] Co de Phone Number [facility] [address] * LIPASE BLOOD (08/30/2016 1:03 PM CDT) Lipase 20 8 - 78 U/L 08/30/2016 1:34 PM CDT [facility] Blood BLOOD SPECIMEN / Unknown Lab Venipuncture / Unknown 08/30/2016 1:03 PM CDT 08/30/2016 1:06 PM CDT Timothy Andersen APRN-DRAPERY MAKER LAB - CHEMISTR Y ORDERABLES [facility] [address] * AMYLASE BLOOD (08/30/2016 1:03 PM CDT) Amylase 50 25 - 125 U/L 08/30/2016 1:34 PM CDT [facility] Blood BLOOD SPECIMEN / Unknown Lab Venipuncture / Unknown 08/30/2016 1:03 PM CDT 08/30/2016 1:06 PM CDT Timothy Andersen APRN-DRAPERY MAKER LAB - CHEMISTR Y ORDERABLES Performing Organization Address City/[facility]/ZIP Co de Phone Number [facility] [address] Care Teams Truck Loader Overhead Crane Relationship Specialty Start Date End Date Sylvia Hicks APRN-CNP [address] [phone] PCP - General Nurse Practitioner 08/26/16
--- OUTSIDE RECORDS SUMMARY | 2024-05-01 15:50 | XMS_ITS | Referral Summary ---
Author Organization [facility] [employer] Address [address] [place] [address] Care Team Providers Care Duct Maker Name Role Phone Luz Marinamert Sylvia BETY-HAT COPYIST Primary Care Provider + Source Comments [facility] [employer],non-owned Affiliates and Associated Physician Practices is amultiple site organization consisting of ambulatory clinics and hospital sitesin [place], [place], [place] and [place]. This disclosure is being madepursuant to the Care Everywhere program and may not contain all information available regarding this patient. Last updated 17.[facility] [employer] Allergies Active Allergy Reactions Criticality Noted Date Comments Morphine Anaphylaxis High 08/30/2016 Pt coded Medications * Be aware that medications may not be up to date on this document. Alwaysverify current medications with the patient. Medication Sig Dispensed Refills Start Date End Date Status est estrogens-methyltest (ESTRATEST) 1.25-2.5 MG tablet Take 1 Tab by mouth Activ e levothyroxine (SYNTHROID) 137 MCG tablet Take 137 mcg by mouth Active docusate sodium (COLACE) 100 MG capsule 1 tab daily as needed 20 Cap 08/30/2016 Active Additional Information Patient not taking.Reported on 02/16/2017 Social History Tobacco Use Types Packs/Day Years [...] Comments Blood Pressure 120/68 02/16/2017 12:53 PM SENIOR CHEMICAL ENGINEER Pulse 121 02/16/2017 12:53 PM SENIOR CHEMICAL ENGINEER Temperature 37.1 C (98.7 F) 02/16/2017 12:53 PM SENIOR CHEMICAL ENGINEER Respiratory Rate 16 08/30/2016 3:05 PM CDT Oxygen Saturation 98% 02/16/2017 12:53 PM SENIOR CHEMICAL ENGINEER Inhaled Oxygen Concentration - - Weight 73.8 kg (162 lb 9.6 oz) 02/16/2017 12:53 PM SENIOR CHEMICAL ENGINEER Height 165.1 cm (5' 5 ) 02/16/2017 12:53 PM SENIOR CHEMICAL ENGINEER Body Mass Index 27.06 02/16/2017 12:53 PM SENIOR CHEMICAL ENGINEER Plan of Treatment Not on file Procedures Procedure Name Priority Date/Time Associated Diagnosis Comments COMPREHENSIVE METABOLIC PANEL STAT 08/30/2016 1:03 PM CDT from Last 3 Months or Most Recently Relevant to Health Maintenance Results * (ABNORMAL) COMPREHENSIVE METABOLIC PANEL (08/30/2016 1:03 PM CDT) Glucose 91 70 - 125 mg/dL 08/30/2016 1:34 PM [facility] Sodium 141 136 - 145 mmol/L 08/30/2016 1:34 PM [facility] Potassium 3.8 3.4 - 4.5 mmol/L 08/30/2016 1:34 PM [facility] Chloride 103 98 - 107 mmol/L 08/30/2016 1:34 PM [facility] CO2 30(H) 22 - 29 mmol/L 08/30/2016 1:34 PM [facility] Calcium 9.9 8.4 - 10.2 mg/dL 08/30/2016 1:34 PM [facility] Anion Gap 12 10 - 20 mmol/L 08/30/2016 1:34 PM [facility] BUN 21.7(H) 9.8 - 20.1 mg/dL 08/30/2016 1:34 PM [facility] Creatinine 0.96 0.57 - 1.11 mg/dL 08/30/2016 1:34 PM [facility] eGFR by MDRD >60 >60 mL/min/1.7 3m2 08/30/2016 1:34 PM [facility] eGFR by MDRD >60 >60 mL/min/1.7 3m2 08/30/2016 1:34 PM [facility] Alkaline Phosphatase 67 40 - 150 U/L 08/30/2016 1:34 PM CDT [facility] ALT 20 5 - 55 U/L 08/30/2016 1:34 PM CDT [facility] AST 24 5 - 34 U/L 08/30/2016 1:34 PM CDT [facility] Protein Total 7.8 6.4 - 8.3 gm/dL 08/30/2016 1:34 PM CDT [facility] Albumin 4.2 3.5 - 5.0 gm/dL 08/30/2016 1:34 PM CDT [facility] Globulin Total 3.6 2.6 - 4.0 gm/dL 08/30/2016 1:34 PM CDT [facility] Albumin/Globulin Ratio 1.2 0.9 - 1.6 08/30/2016 1:34 PM CDT [facility] Bilirubin Total 0.6 0.2 - 1.2 mg/dL 08/30/2016 1:34 PM CDT [facility] Blood BLOOD SPECIMEN / Unknown Lab Venipuncture / Unknown 08/30/2016 1:03 PM CDT 08/30/2016 1:06 PM CDT Timothy Andersen MUSIC WRITER-HAT COPYIST LAB - CHEMISTR Y ORDERABLES Performing Organization Address [facility] Co de Phone Number [facility] [address] from Last 3 Months or Most Recently Relevant to Health Maintenance Johanna Vargas Personal/Family Self 1970 [address] [place] [address] Betito Vargas Personal/Family 03/10/1977 [address] [place] [address] Care Teams Duct Maker Relationship Specialty Start Date End Date Sylvia Hicks APRN-TENISHA [address] [phone] PCP - General Nurse Practitioner 08/26/16
--- OUTSIDE RECORDS SUMMARY | 2024-05-01 15:50 | XMS_ITS | Data Portability ---
Author Organization [facility] Address [address] [place] [address] Care Team Providers Care Production Control Clerk Name Role Phone RAJAN GIRON Primary Care Provider Unavailab le Assessment Encounter Date Assessment Date Assessment LastModified by Organization Details LastModified Time 10/24/2023 10/24/2023 mammogram all clear colonoscopy still within 10 years. Not available 10/24/2023 12:21:13 Plan of Treatment Reminders Order Date Submit Date Provider Last Modified By Organization Details Last Modified Time Details Appointments None recorded. Lab None recorded. Referral machine tool rebuilder referral [address] (Audiology), [address] [place] [address] [address], [place], [address], 5 14:16:48 Procedures None recorded. Surgeries None recorded. Imaging None recorded. Medication Orders Wegovy 2.4 mg/0.75 mL subcutaneou s pen injector 2023 024 [id number], [address], [address], 4 12:23:54 Patient TargetsNo targets recorded. Patient Instructions Encounter Date Encounter Id Patient Instructions Last Modified By Organization Details Last Modified Time 10/24/2023 [id number] A healthy lifestyle: care instructions Not available 10/29/2023 21:27:10 Reason for Referral Deputy Clerk Of Superior Court Referral for Dec reased hearing Referring Physician: Rajan Giron, Internal Medicine, Encounter Date: 10/24/2023 Results Created Date Observation Date Name Description Value Unit Range Abnormal Flag Note LastModifiedBy Organization Detail LastModifiedTime 03/28/1905/03/2022 XR, cervi larry spine No observ ation record ed. Not Available 2024 00:55:24 03/28/19 25 09/16/2022 XR, lumba r spine No observ ation record ed. Not Available 2024 00:55:24 05/02/19 25 05/01/2024 imagi ng/di agnos tic resul t No observ ation record ed. [facility] [address], [place], [address], 05/01/2024 16:38:42 Result Notes None recorded. Problems Name Problem SNOMED Code Status Onset Date Resolution Date Notes Provider Name and Address Organization Details Recorded Time Hypothyroidism 54267710 Active 2023 ELIOT Penny Attn: Yung blas,[address] [place], [address], [facility] 4 12:23:08 Long-term drug therapy Active 2023 ELIOT Penny Attn: Yung blas,[address] [place], [address], [facility] 4 12:23:14 Body mass index 30+ - obesity 344947577 Active 2023 ELIOT Penny Attn: Yung blas,[address] [place], [address], [place] [facility] 4 21:27:03 Obesity 323168922 Active 2023 ELIOT Penny Attn: Yung g,[address] [place], [address], [facility] 4 21:27:08 Decreased hearing 303275910 Active 2023 ELIOT Penny Attn: Yung blas,[address] [place], [address], [facility] 21:27:18 Problem Notes None recorded. Procedures Surgical History Date Name Laterality Status Provider Name and Address Organization Details Recorded Time 03/23/19 08 cholecystectomy completed Jacquie Harding MA [facility] 10/24/2023 11:33:07 03/23/18 78 Appendectomy completed Jacquie Harding MA [facility] 10/24/2023 11:32:57 laparoscopic sleeve gastrectomy completed Jacquie Harding MA [facility] 10/24/2023 11:33:30 hysterectomy completed Jacquie Harding MA [facility] 10/24/2023 11:33:37 Imaging Results Imaging Date Name Status LastModified by Organiz ation Details LastModified Time 05/03/2022 XR, cervical spine completed Information not available 03/29/2024 00:55:24 09/16/2022 XR, lumbar spine completed Information not available 03/29/2024 00:55:24 05/01/2024 imaging/diagn ostic result active [facility] [address], [place], [address], 05/01/2024 16:38:42 Procedure Notes None recorded. Medical Equipment None Reported. Allergies Allergen ID Allergen Name Allergen Category Reaction Reaction Severity Criticality Documentation Date Start Date Code Code System Note Provider Name and Address Organization Details Recorded Time 980797 morphine medicatio n Not available Not available Not available 10/24/2023 7052 RxNorm Not Available Not Available Not Available Medications Name Sig Start Date Stop Date Status Note LastModified by Organization Details LastModified Time celecoxib 200 mg capsule TAKE 1 CAPSULE (200 MG) BY MOUTH TWICE A DAY NEEDED 10/23 completed Not Available Not Available Not Available prednisone 10 mg tablet TAKE 3 TABLETS BY MOUTH DAILY FOR THE NEXT 3 DAYS, THEN DISCUSS REDUCTION OF DOSE BY PHONE 10/23 completed Not Available Not Available Not Available Synthroid 125 mcg tablet TAKE 1 TABLET BY MOUTH EVERY DAY active Not Available Not Available No t Available amoxicillin 875 mg tablet TAKE 1 TABLET BY MOUTH EVERY 12 HOURS active Not Available Not Available No t Available Synthroid 112 mcg tablet active Not Available Not Available Not Available scopolamine 1 mg over 3 days transdermal patch APPLY 1 PATCH EVERY 72 HOURS BY TRANSDERM AL ROUTE DIRECTED. 10/23 completed Not Available Not Available Not Available ondansetron 4 mg disintegrat ing tablet TAKE 1 TABLET BY MOUTH EVERY 8 HOURS NEEDED FOR NAUSEA active Not Available Not Available No t Available amoxicillin 875 mg-potassiu m clavulanate 125 mg tablet TAKE 1 TABLET BY MOUTH EVERY 12 HOURS 10/23 completed Not Available Not Available Not Available escitalopra m 10 mg tablet TAKE 1 TABLET BY MOUTH EVERY DAY 2024 active Not Available Not Available Not Avai lable Wegovy 2.4 mg/0.75 mL subcutaneou s pen injector Inject 2.4 mg every week by subcutane ous route. active Not Available Not Available No t Available Flowflex COVID-19 Antigen Home Test kit active Not Available Not Available Not Available Vitals Date Recorded Body height Respiratory rate Body mass index (BMI) Body weight Oxygen saturation Oxygen saturation in Arterial blood by Pulse oximetry Heart rate Systolic blood pressure Diastolic blood pressure Provider Name and Address Organization Details Last Updated DateTime 165.1 cm 18 /min 35.8 kg/m2 37009.5 g 99 % 99 % 73 /min 122 mm[Hg] 82 mm[Hg] Jacquie Harding MA [facility] 11:44:51 Date Recorded Systolic blood pressure Diastolic blood pressure Provider Name and Address Organization Details Last Updated DateTime 10/24/2023 120 mm[Hg] 80 mm[Hg] ELIOT Penny Attn: Accounting[address] [place], [address], [facility] 10/24/2023 12:25:08 Social History Question Answer Notes LastModified by Organizat ion Details LastModified Time Tobacco Smoking Status Never Smoker Jacquie Harding MA [facility], [facility] 10/24/2023 11:35:04 Do You Have An Advance Directive? No Information not available 10/24/2023 What Is Your Level Of Alcohol Consumption? None Information not available 10/24/2023 Are You Blind Or Do You Have Difficulty Seeing? Yes Glasses Information not available 10/24/2023 In The 14 Days Before Symptom Onset, Have You Had Close Contact With A Laboratory-confir med COVID-19 While That Case Was Ill? No Information not available 10/24/2023 In The 14 Days Before Symptom Onset, Have You Had Close Contact With A Person Who Is Under Investigation For COVID-19 While That Person Was Ill? No Information not available 10/24/2023 Have You Been To An Area Known To Be High Risk For COVID-19? No Information not available 10/24/2023 Are You Currently Employed? Yes Information not available 10/24/2023 Are You Deaf Or Do You Have Serious Difficulty Hearing? No Hearing Information not available 10/24/2023 What Type Of Diet Are You Following? REGULAR Information not available 10/24/2023 What Is Your Occupation? [employer] Information not available 10/24/2023 Are There Any Guns Present In Your Home? No Information not available 10/24/2023 What Was The Date Of Your Most Recent Tobacco Screening? 10/24/2023 Information not available 10/24/2023 Do You Use Your Seat Belt Or Car Seat Routinely? Yes Information not available 10/24/2023 Do You Have Smoke And Carbon Monoxide Detectors In Your Home? Yes Information not available 10/24/2023 Do You Use Any Illicit Or Recreational Drugs? No Information not available 10/24/2023 Do You Use Sunscreen Routinely? Yes Information not available 10/24/2023 Has Tobacco Cessation Counseling Been Provided? No Information not available 10/24/2023 Do You Or Have You Ever Used Any Other Forms Of Tobacco Or Nicotine? No Information not available 10/24/2023 Sex: Female Functional Status Question Answer Note LastModified by Organization D etails LastModified Time Are you able to care for yourself? Yes Information n ot available 10/24/2023 What is your exercise level? None Information not available 10/24/2023 Mental Status None recorded. Family History Relationship Description Onset Age of this Age Resolved Age Notes LastModified by Organization Details LastModified Time Sister Asthma tcarterma Not available 10/24/2023 11:34:11 Sister Attention deficit hyperactivit y disorder tcarterma Not available 10/23 11:34:18 Sister Kidney disease tcarterma Not available 2023 11:34:41 Sister Migraine tcarterma Not availabl e 10/24/2023 11:34:50 Father Attention deficit hyperactivit y disorder tcarterma Not available 10/23 11:34:18 Father Diabetes mellitus tcarterma Not available 2023 11:34:24 Father Hypercholest erolemia tcarterma Not available 2023 11:34:31 Father Kidney disease tcarterma Not available 2023 11:34:41 Father Malignant tumor of prostate tcarterma Not available 2023 11:34:55 Mother Hypercholest erolemia tcarterma Not available 2023 11:34:31 Mother Migraine tcarterma Not availabl e 10/24/2023 11:34:50 Medical History Condition Response Coronary Artery Disease N Other N High Blood Pressure N Atrial Fibrillation N Thyroid Problems Y Blood Clots N COPD N Depression N GI Problems Y Have you had a mammogram in the last yea r? N Skin Problems N Anemia N Heart Attack ([place]) N Anxiety Disorder N Diabetes N Muscle, Joint, or Bone Problems N Seizures/Epilepsy N Acid Reflux (GERD) N Cancer N Stroke N Asthma N Allergies N High Cholesterol Y Hepatitis N Liver Disease N Headaches N Heart Failure N Osteoporosis N Gynecological History Statement/Question Response Menses Monthly N Current Control Method Hysterectom y Obstetrics History GPAL:G 3 P 2 0 0 2 Type Value Full Term 2 Induced 0 Spontaneous 0 Premature 0 Living 2 Total 3 Past Encounters Encounter ID Performer Location Encounter Start Date Encounter Closed Date Diagnosis/Indication Diagnosis SNOMED-CT Code Diagnosis ICD10 Code Diagnosis Note [id number] ELIOT Penny [facility]y Cano [address] [place] [address] 10/24/2023 11:23:03 10/24/2023 12:35:59 Adult health examination 217524538 Z00.00 wellness completed Hypothyroidism 14509739 E03.9 Patient is seeing endocrinol ogist in stable on Synthroid 125 mcg daily Body mass index 30+ - obesity 802934344 Z68.35 BMI is 35.8. start Wegovy injectable therapy. no personal or family hx of Medullary thyroid cancer or MEN conditions . She has previously been on compound version of semaglutid e and is interested in transferri ng over to Wegovy. She is already at the high-dose of compounded molecule and wants to move to the high-dose of Wegovy. Long-term drug therapy 056487403 Z79.899 Labs are up-to-date and reviewed paper copy from endocrinol ogy labs. Decreased hearing 745378 001 H91.90 Refer to audiology for formal hearing evaluation Obesity 470375151 E66.8 discussed healthy diet, exercise, controllin g carbohydra justen and added sugars in the diet Health Concerns Section Related Observation LastModified by Organization Detai ls LastModified Time None Recorded Concern Status LastModified by Organization Details LastModified Time None Recorded Advance Directives Directive N: Payers Encounter Date Sequence Insurance Name Policy Number Policy Lai Covered Member ID Lai Member ID Guarantor Name 10/24/2023 1 [facility] ([place] [id number] Sudeep Vargas [id number] Johanna Vargas Notes Date Note Type Note Provider Name and Address Organization Details Recorded Time 10/24/2023 text/html ThyroidReported bypatient.Notes:Nicky galvan is on Synthroid 125 mcg daily. She does have lab work completed from her assembly riveter and has brought us a paper copy to review in the exam. Patient is interested in Wegovy for weight loss assistance. Patient reports decreased hearing overall and it is not getting any better. She would like to discuss a referral to audiology ELIOT Penny Attn: Accounting[address] [facility], [place], [address], [facility] 10/29/2023 21:27:58 OBGyn Episode No OBEpisode recorded.
--- OUTSIDE RECORDS SUMMARY | 2024-05-01 15:50 | XMS_ITS | Encounter Summary ---
Author Organization [facility] Address [facility] [place] [address] Care Team Providers Care Beef Selector Name Role Phone Sylvia Hicks NP Primary Care Provider [phone] Encounter Details Date Type Department Care Team (Late st Contact Info) Description 08/11/2021 AGV Media Message [facility] Patient Accounts [address] [place] [address] [facility] Provider Past due balance Social History Tobacco Use Types Packs/Day Years Used Date Smoking Tobacco: Never Assessed Comments Unknown Sex and Gender Information Value Date Recorded Sex Assigned at Not on file Legal Sex Female 7:32 AM CDT Gender Identity Not on file Sexual Orientation Not on file documented as of this encounter Plan of Treatment Not on file documented as of this encounter Visit Diagnoses Not on filedocumented in this encounter Care Teams Beef Selector Relationship Specialty Start Date End Date Sylvia Hicks NP [address] [place] [address] PCP - General NURSE PRACTITIONER 11/27/19 documented as of this encounter
--- OUTSIDE RECORDS SUMMARY | 2024-05-01 15:50 | XMS_ITS | Clinical Summary ---
Author Organization [facility] Address [address] [place] [address] Care Team Providers Care Cream Dumper Name Role Phone Sylvia Hicks NP Primary Care Provider [phone] Allergies Active Allergy Reactions Criticality Noted Date Comments Morphine Anaphylaxis High 12/03/2020 CODED THE LAST TIME SHE TOOK IT Medications diphenoxylate-atropi ne (LOMOTIL) 2.5-0.025 MG tabletIndications:Vi ral gastroenteritis Take 1 tablet by mouth 4 (four) times daily as needed for Diarrhea. 20 tablet 1 Active ondansetron (ZOFRAN-ODT) 4 MG disintegrating tablet Take 1 tablet (4 mg total) by mouth every 8 (eight) hours as needed for Nausea. 12 tablet 4 Active Social History Tobacco Use Types Packs/Day Years Used Date Smoking Tobacco: Never Smokeless Tobacco: Never Tobacco Cessation:Counseling Given: Not Answered Alcohol Use Standard Drinks/Week Comments Not Currently 0 (1 standard drink = 0.6 oz pur e alcohol) Comments Unknown Sex and Gender Information Value Date Recorded Sex Assigned at Not on file Legal Sex Female 7:32 AM CDT Gender Identity Not on file Sexual Orientation Not on file Last Filed Vital Signs Vital Sign Reading Time Taken Comments Blood Pressure 122/80 06/29/2023 9:00 AM CDT Pulse 81 06/29/2023 9:00 AM CDT Temperature 36.7 C (98 F) 06/29/2023 9:00 AM CDT Respiratory Rate 17 06/29/2023 9:00 AM CDT Oxygen Saturation 99% 06/29/2023 9:00 AM CDT Inhaled Oxygen Concentration - - Weight 83.9 kg (185 lb) 06/29/2023 6:09 AM CDT Height 165.1 cm (5' 5 ) 06/29/2023 6:09 AM CDT Body Mass Index 30.79 06/29/2023 6:09 AM CDT Plan of Treatment Health Maintenance Due Date Last Done Comments Colorectal Cancer Screening Colonoscopy (10 Years) 1968 Annual Physical 07/11/1971 Hepatitis C 1986 DTaP, Tdap and Td Vaccines ( 1 - Tdap) 07/11/1987 Hepatitis B Vaccines (1 of 3 - 19+ 3-dose series) 07/11/1987 Mammogram Screening 2008 Zoster Vaccines (1 of 2) 2018 COVID-19 Vaccine (2023-2 5 season) 2023 Influenza Adult (#1) 2023 Meningococcal B Vaccine Aged Out No l onger eligible based on patient's age to complete this topic Meningococcal Vaccine Aged Out No raúl adelso eligible based on patient's age to complete this topic Pneumococcal Vaccine: Pediat rics (0 to 5 Years) and At-Risk Patients (6 to 64 Years) Aged Out No longer eligible b ased on patient's age to complete this topic RSV Immunizations Under 20 Months Aged Out No longer eligible based on patient's age to complete this topic Care Teams Cream Dumper Relationship Specialty Start Date End Date Sylvia Hicks NP [address] [place] [address] PCP - General NURSE PRACTITIONER 11/27/19
--- OUTSIDE RECORDS SUMMARY | 2024-05-01 15:50 | XMS_ITS | Clinical Summary ---
Author Organization [facility] Address [address] [facility] [place] [address] Phone Care Team Providers Care Noc Engineer Name Role Phone Cuco Clemente MD Primary Care Provider + Allergies Active Allergy Reactions Criticality Noted Date Comments Morphine Other (See Comments) 03/17/2014 Pt coded because body does not metabolize . pt get too sedated Medications est estrogens-meth yltest (ESTRATEST) 1.25-2.5 mg tablet Take 1 Tab by mouth see administration instructions. Active escitalopram oxalate (LEXAPRO) 10 mg tablet Take 10 mg by mouth daily. Active levothyroxine 137 mcg Oral tablet Take 137 mcg by mouth daily turf and grounds supervisor. Active ondansetron (ZOFRAN ODT) 4 mg Tablet, Rapid Dissolve Place 1 Tab under tongue every 8 hours as needed for Nausea. 10 Tab 0 5 Active Active Problems Problem Noted Date Diagnosed Date Hypothyroidism 03/26/2014 Morbid obesity 03/26/2014 Irritable bowel syndrome 03/26/2014 Lower extremity edema 03/26/2014 DVT prophylaxis 03/26/2014 GERD (gastroesophageal reflux disease) 5 Family History Medical History Relation Name Comments Diabetes Father Healthy Mother Relation Name Status Comments Father Alive Mother Alive Social History Tobacco Use Types Packs/Day Years Used Date Smoking Tobacco: Never Alcohol Use Standard Drinks/Week Comments No 0 (1 standard drink = 0.6 oz pur e alcohol) Comments Unknown Sex and Gender Information Value Date Recorded Sex Assigned at Not on file Legal Sex Female 12:59 PM CDT Gender Identity Not on file Sexual Orientation Not on file Last Filed Vital Signs Vital Sign Reading Time Taken Comments Blood Pressure 104/63 03/27/2014 7:10 AM HEAVY EQUIPMENT ENGINE MECHANIC Pulse 58 03/27/2014 7:00 AM HEAVY EQUIPMENT ENGINE MECHANIC Temperature 36.4 C (97.5 F) 03/27/2014 7:00 AM HEAVY EQUIPMENT ENGINE MECHANIC Respiratory Rate 18 03/27/2014 7:00 AM HEAVY EQUIPMENT ENGINE MECHANIC Oxygen Saturation 98% 03/27/2014 7:00 AM HEAVY EQUIPMENT ENGINE MECHANIC Inhaled Oxygen Concentration - - Weight 102.1 kg (225 lb) 03/27/2014 5:30 AM HEAVY EQUIPMENT ENGINE MECHANIC Height 165.1 cm (5' 5 ) 03/27/2014 8:00 AM HEAVY EQUIPMENT ENGINE MECHANIC Body Mass Index 37.44 03/27/2014 5:30 AM HEAVY EQUIPMENT ENGINE MECHANIC Plan of Treatment Health Maintenance Due Date Last Done Comments Pre-Diabetes and Diabetes Screening 1968 DTAP/TDAP/TD VACCINES (1 - Tdap) 07/11/1987 HEPATITIS B VACCINES (1 of 3 - 19+ 3-dose series) 07/11/1987 CERVICAL CANCER SCREENING 1998 BREAST CANCER SCREENING 2008 COLORECTAL SCREENING 2013 Colorectal Cancer Screening 2013 FIT-DNA Q 3 years 2013 FIT/FOBT Q 1 year 2013 Flex Sig/CT Colonography Q 5 years 2013 ZOSTER VACCINE (1 of 2) 2018 INFLUENZA VACCINE (#1) 2023 PNEUMOCOCCAL VACCINE 0-49 YEARS Aged Out No longer eligible based on patient's age to complete this topic Medical Devices Implanted Type Area Revenue Cycle Consultant Device Identifier Shelf Expiration Date Model / Serial / Lot Seamguard Bio 60 [id number] - [id number] Implanted:Qty: 4 on 03/26/2014 by Tom Orlando MD at [facility] N/A: Abdomen [employer] 12/20/2016 [id number] / / [id number] Insurance BCBS BLUE ACCESS/TRUE BLUE PPO Advance Directives For more information, please contact: [phone] * Full Code (Latest Code Status on File) Date Activated Date Inactivated Comments 03/26/2014 7:30 AM 03/27/2014 3:08 PM * Full Code Date Activated Date Inactivated Comments 03/26/2014 5:46 AM 03/26/2014 7:30 AM Care Teams Noc Engineer Relationship Specialty Start Date End Date Cuco Clemente MD PCP - General Internal Medicine 12/09/13
--- OUTSIDE RECORDS SUMMARY | 2024-05-01 15:50 | XMS_ITS | Clinical Summary ---
Author Organization [facility] [email or web address] Address [address] [place] [address] Care Team Providers Care Fiber Heel Piece Shaper Name Role Phone Luz Marinamert Sylvia BETY-SOCIAL AND POLITICAL STUDIES PROFESSOR Primary Care Provider + Source Comments [facility] [email or web address],non-owned Affiliates and Associated Physician Practices is amultiple site organization consisting of ambulatory clinics and hospital sitesin [place], [place]. This disclosure is being madepursuant to the Care Everywhere program and may not contain all information available regarding this patient. Last updated 17.[facility] [email or web address] Allergies Active Allergy Reactions Criticality Noted Date [...] Comments Blood Pressure 120/68 02/16/2017 12:53 PM RESOLUTION EXPERT Pulse 121 02/16/2017 12:53 PM RESOLUTION EXPERT Temperature 37.1 C (98.7 F) 02/16/2017 12:53 PM RESOLUTION EXPERT Respiratory Rate 16 08/30/2016 3:05 PM CDT Oxygen Saturation 98% 02/16/2017 12:53 PM RESOLUTION EXPERT Inhaled Oxygen Concentration - - Weight 73.8 kg (162 lb 9.6 oz) 02/16/2017 12:53 PM RESOLUTION EXPERT Height 165.1 cm (5' 5 ) 02/16/2017 12:53 PM RESOLUTION EXPERT Body Mass Index 27.06 02/16/2017 12:53 PM RESOLUTION EXPERT Plan of Treatment Health Maintenance Due Date Last Done Comments COLOGUARD (AGES 45-75) - COL ON CA SCREENING 1968 COLON MONITORING 1968 COLONOSCOPY - COLON CA SCREENING 1968 CT COLONOGRAPHY - COLON CA SCREENING 1968 Colorectal Cancer Screening 1968 FIT - COLON CA SCREENING 1968 FLEX SIG - COLON CA SCREENING 1968 LIPID TESTING 1968 MAMMOGRAM 1968 PAP SMEAR 1968 HIV SCREENING 07/11/1983 HEPATITIS C SCREENING 07/06/1986 DTAP/TDAP/TD VACCINES (1 - Tdap) 07/11/1987 HEPATITIS B VACCINE (1 of 3 - 19+ 3-dose series) 07/11/1987 PNEUMOCOCCAL VACCINE 50+ (1 of 1 - PCV) 2018 ZOSTER VACCINE (1 of 2) 2018 SCREENING FOR DIABETES 08/31/2019 08/30/2016 COVID-19 VACCINE (2 - 2023-2 5 season) 2023 02/26/2021 INFLUENZA VACCINE (#1) 2023 2, 10/29/2018, 12/05/2014 DEPRESSION SCREENING 02/21/2024 HIB VACCINE Aged Out No longer eligi ble based on patient's age to complete this topic HPV VACCINE Aged Out No longer eligi ble based on patient's age to complete this topic MENINGOCOCCAL (Group B) VACCINE SHARED DECISION-MAKING Aged Out No longer eligible based on patient's age to complete this topic MENINGOCOCCAL GROUPS A/C/Y/W VACCINE Aged Out No longer eligible b ased on patient's age to complete this topic PNEUMOCOCCAL VACCINE Aged Out No long er eligible based on patient's age to complete this topic Procedures Procedure Name Priority Date/Time Associated Diagnosis Comments COMPREHENSIVE METABOLIC PANEL STAT 08/30/2016 1:03 PM CDT from Last 3 Months or Most Recently Relevant to Health Maintenance Results * (ABNORMAL) COMPREHENSIVE METABOLIC PANEL (08/30/2016 1:03 PM CDT) Glucose 91 70 - 125 mg/dL 08/30/2016 1:[address] [facility] Sodium 141 136 - 145 mmol/L 08/30/2016 1:34 PM [facility] Potassium 3.8 3.4 - 4.5 mmol/L 08/30/2016 1:34 PM [facility] Chloride 103 98 - 107 mmol/L 08/30/2016 1:34 PM [facility] CO2 30(H) 22 - 29 mmol/L 08/30/2016 1:34 PM [facility] Calcium 9.9 8.4 - 10.2 mg/dL 08/30/2016 1:34 PM [facility] Anion Gap 12 10 - 20 mmol/L 08/30/2016 1:34 PM [facility] BUN 21.7(H) 9.8 - 20.1 mg/dL 08/30/2016 1:34 PM [facility] Creatinine 0.96 0.57 - 1.11 mg/dL 08/30/2016 1:34 PM [facility] eGFR by MDRD >60 >60 mL/min/1.7 3m2 08/30/2016 1:34 PM [facility] eGFR by MDRD >60 >60 mL/min/1.7 3m2 08/30/2016 1:34 PM [facility] Alkaline Phosphatase 67 40 - 150 U/L 08/30/2016 1:34 PM [facility] ALT 20 5 - 55 U/L 08/30/2016 1:34 PM [facility] AST 24 5 - 34 U/L 08/30/2016 1:34 PM [facility] Protein Total 7.8 6.4 - 8.3 gm/dL 08/30/2016 1:34 PM [facility] Albumin 4.2 3.5 - 5.0 gm/dL 08/30/2016 1:34 PM [facility] Globulin Total 3.6 2.6 - 4.0 gm/dL 08/30/2016 1:[address] [facility] Albumin/Globulin Ratio 1.2 0.9 - 1.6 08/30/2016 1:[address] [facility] Bilirubin Total 0.6 0.2 - 1.2 mg/dL 08/30/2016 1:[address] [facility] Blood BLOOD SPECIMEN / Unknown Lab Venipuncture / Unknown 08/30/2016 1:03 PM CDT 08/30/2016 1:06 PM CDT Timothy Andersen APRN-[facility] - CHEMISTR Y ORDERABLES Performing Organization Address City/State/[facility] Co de Phone Number [facility] [address] from Last 3 Months or Most Recently Relevant to Health Maintenance Care Teams Fiber Heel Piece Shaper Relationship Specialty Start Date End Date Sylvia Hicks APRN-CNP [address] [phone] PCP - General Nurse Practitioner 08/26/16
--- OUTSIDE RECORDS SUMMARY | 2024-05-01 15:50 | XMS_ITS | CONTINUITY OF CARE DOCUMENT ---
Author Name kiana bruno Address Unknown Organization [facility] Address [address] [place] [address] Phone [phone] Care Team Providers Care Outpatient Physical Therapist Name Role Phone Joyce Rueda MD Unavailable [phone] MELANY LONG Unavailable MELANY LONG Unavailable [phone] PROBLEMS Condition Status Date Provider Notes Leg pain, bilateral active Hunter Ahmedzai Leg edema, bilateral active Hunter Ahmedzai Hyperlipidemia active Hunter Ahmedzai Vitamin D deficiency active Hunter Ahmedzai Hypothyroidism active Hunter Ahmedzai [employer] Payer name Policy type / Coverage type Rebecca red democrat ID [facility] [id number]
== END 2024-05-01 14:01 | disposition home or self-care (01) ==
LOC: ANHIMG 14:03
PROVIDERS: PCP Physician Assistant; Visit Provider Physician Assistant
DX: Z12.31 Encounter for screening mammogram for malignant neoplasm of breast (principal)
CPT/HCPCS: 77063; 77067

== ENCOUNTER 2024-11-04 10:05 | Outpatient (CLI) | payer BC, SELFPAY ==
--- NOTE | ~2024-11-04 | MR_ITS ---
EXAMINATION: MR shoulder LT wo con DATE: 11/04/2024 10:41 INDICATION: Impingement syndrome of left shoulder. TECHNIQUE: Magnetic resonance imaging (MRI) of the left shoulder was performed without intravenous contrast. Sequences included axial PD-weighted FS FSE, coronal oblique PD-weighted FS FSE and T2-weighted FS FSE, and sagittal oblique T2-weighted FS FSE and T1-weighted FSE. COMPARISON: Left shoulder radiographs 05/23/2024 FINDINGS: Coracoacromial arch: The acromion undersurface is curved in morphology (type II). The acromioclavicular joint is normal. There is mild subacromial/subdeltoid bursitis. Rotator cuff: There is moderate supraspinatus tendinopathy and mild infraspinatus tendinopathy. There is a small interstitial tear of supraspinatus tendon at the distal attachment measuring 5 mm anterior to posterior by 1 mm proximal to distal by 30% tendon thickness. Teres minor tendon is normal. Subscapularis tend on is normal. There is no asymmetric fatty change the rotator cuff muscle bellies. Biceps tendon and glenoid labrum: Biceps tendon is in bicipital groove. Intra-articular biceps tendon is normal. There is degeneration of the glenoid labrum without well-defined tear. Fluid: There is a small glenohumeral joint effusion. Bones/cartilage: The glenoid cartilage is normal. The humeral head cartilage is normal. IMPRESSION: 1. Moderate rotator cuff tendinopathy with small interstitial tear of the distal attachment of supraspinatus tendon. 2. Mild subacromial/subdeltoid bursitis. 3. Small glenohumeral joint effusion. Reviewed, dictated and finalized at location E. IMPRESSION: 1. Moderate rotator cuff tendinopathy with small interstitial tear of the dista l attachment of supraspinatus tendon. 2. Mild subacromial/subdeltoid bursitis. 3. Small glenohumeral joint effusion.
== END 2024-11-04 10:06 | disposition home or self-care (01) ==
LOC: MICIMG 10:06
PROVIDERS: PCP Physician Assistant; Visit Provider Orthopaedic Surgery
DX: M75.42 Impingement syndrome of left shoulder (principal); M75.52 Bursitis of left shoulder; M25.412 Effusion, left shoulder
CPT/HCPCS: 73221